=== PATIENT | female | born 2000 | race American Indian/Alaskan Native ===

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

== ENCOUNTER 2019-04-30 04:55 | Inpatient (IN) | payer MEDICAID ==
[2019-04-30] MEDS ORDERED: Sodium Chloride 0.9% 10 ML Syringe FLUSH PRN (16:43)
[2019-04-30] MEDS ORDERED: Ondansetron 4 MG/2 ML SDV IVPUSH PRN (16:46)
[2019-04-30] MEDS ORDERED: Nalbuphine 10 MG/1 ML Vial IVPUSH PRN (16:46)
[2019-04-30] MEDS ORDERED: Oxytocin/Lactated Ringers 10 UNIT/1,000 ML BAG IV SCH (17:00)
[2019-04-30] MEDS: Misoprostol 25 MCG (1/4 of 100 MCG) Tab VAG SCH ×3 (18:57→23:02)
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
[2019-04-30] MEDS ORDERED: Albuterol 6.7 GM Inhaler INH PRN (22:31)
[2019-05-01] MEDS: Misoprostol 25 MCG (1/4 of 100 MCG) Tab VAG SCH (03:01)
[2019-05-01] MEDS: Oxytocin/Lactated Ringers 10 UNIT/1,000 ML BAG IV SCH ×2 (07:32→20:30)
[2019-05-01] MEDS: Lactated Ringers 1,000 ML IV SCH ×4 (07:32→21:50)
--- NOTE | 2019-05-01 09:43 | PCM.PNLD ---
Labor Progress Note - VS & Meds Vital Signs: Last Vital Signs Temp 36.6 C 04/30/19 16:43 Pulse 76 05/01/19 03:02 Resp 17 04/30/19 16:43 BP 117/73 05/01/19 02:30 Pulse Ox 100 04/30/19 16:43 Active Medications: Current Medications Albuterol (Proventil Hfa) 0 gm INH Q4H PRN PRN Reason: Shortness of Breath Lactated Ringer's (Ringers, Lactated) 1,000 mls @ 40 mls/hr IV ASDIRECTED PETER Last Admin: 05/01/19 07:32 Dose: 100 mls/hr Oxytocin/Lactated Ringer's (Pitocin In Lr 10 Units/1,000 Ml) 10 unit in 1,000 mls @ 500 mls/hr IV .CONTINUOUS PETER Oxytocin/Lactated Ringer's (Pitocin In Lr 10 Units/1,000 Ml) 10 unit in 1,000 mls @ 12 mls/hr IV TITRATE PETER; Protocol Last Titration: 05/01/19 08:40 Dose: 6 munits/min, 36 mls/hr Nalbuphine HCl (Nubain) 10 mg IVPUSH Q2H PRN PRN Reason: Pain Ondansetron HCl (Zofran) 4 mg IVPUSH Q4H PRN PRN Reason: Nausea/Vomiting Sodium Chloride (Saline Flush) 10 ml FLUSH ASDIRECTED PRN PRN Reason: Keep Vein Open Discontinued Medications Misoprostol (Cytotec) 25 mcg VAG Q4HR [facility] Stop: 05/01/19 01:01 Last Admin: 04/30/19 21:53 Dose: Not Given Misoprostol (Cytotec) 25 mcg VAG Q4H PETER Stop: 05/01/19 03:01 Last Admin: 05/01/19 03:01 Dose: 25 mcg - Uterine Contractions Uterine Monitoring Mode: External [place] Contraction Frequency (min): 3-5 Contraction Duration (sec): 40-60 Contraction Intensity: Mild Uterine Resting Tone: Soft - Monitoring Monitor Mode: External Ultrasound Heart Rate (FHR) Baseline: 125 Heart Rate (FHR) Variability: Moderate (6-25 bmp) Accelerations: Present, 15x15 Decelerations: None Strip Review: Category I - Vaginal Exam Dilation (cm): 1 Effacement (Percent): 50 Station: -1 Cervical Position: Midposition Sterile Vaginal Exam Performed By: Cha Arenas - Labor Progress (Free Text) Labor Progress: Patient rested on and off through the night. She had 3 doses of cytotec and she had SROM at 0630 for clear fluid. Pitocin induction was started at 0730. Currently at 8 mu/min and she is still not in a good contraction pattern. Contractions are still pretty mild. She continues to leak clear fluid. She is anxious and fearful for what is to come. We discussed epidural and she doesn't think that she could do that. Discussed how it can help her relax and let her body work. Assessment - Term , latent phase of labor. Category I monitor strip. Plan - continue pitocin induction per protocol. Analgesia as indicated and in discussion with the patient. continue with other pain management techniques, consider using the bathtub, breathing, visualization. Expectant management of labor.
--- NOTE | 2019-05-01 16:15 | PCM.PNLD ---
Labor Progress Note - VS & Meds Vital Signs: Last Vital Signs Temp 36.6 C 04/30/19 16:43 Pulse 76 05/01/19 03:02 Resp 17 04/30/19 16:43 BP 117/73 05/01/19 02:30 Pulse Ox 100 04/30/19 16:43 Active Medications: Current Medications Albuterol (Proventil Hfa) 0 gm INH Q4H PRN PRN Reason: Shortness of Breath Lactated Ringer's (Ringers, Lactated) 1,000 mls @ 40 mls/hr IV ASDIRECTED PETER Last Admin: 05/01/19 07:32 Dose: 100 mls/hr Oxytocin/Lactated Ringer's (Pitocin In Lr 10 Units/1,000 Ml) 10 unit in 1,000 mls @ 500 mls/hr IV .CONTINUOUS PETER Oxytocin/Lactated Ringer's (Pitocin In Lr 10 Units/1,000 Ml) 10 unit in 1,000 mls @ 12 mls/hr IV TITRATE PETER; Protocol Last Titration: 05/01/19 15:15 Dose: 16 munits/min, 96 mls/hr Nalbuphine HCl (Nubain) 10 mg IVPUSH Q2H PRN PRN Reason: Pain Ondansetron HCl (Zofran) 4 mg IVPUSH Q4H PRN PRN Reason: Nausea/Vomiting Sodium Chloride (Saline Flush) 10 ml FLUSH ASDIRECTED PRN PRN Reason: Keep Vein Open Discontinued Medications Misoprostol (Cytotec) 25 mcg VAG Q4HR [facility] Stop: 05/01/19 01:01 Last Admin: 04/30/19 21:53 Dose: Not Given Misoprostol (Cytotec) 25 mcg VAG Q4H PETER Stop: 05/01/19 03:01 Last Admin: 05/01/19 03:01 Dose: 25 mcg - Uterine Contractions Uterine Monitoring Mode: External [place] Contraction Frequency (min): 1-3 Contraction Duration (sec): 40-60 Contraction Intensity: Moderate to Strong Uterine Resting Tone: Soft - Monitoring Monitor Mode: External Ultrasound Heart Rate (FHR) Baseline: 135 Heart Rate (FHR) Variability: Moderate (6-25 bmp) Accelerations: Present, 15x15 Decelerations: None Strip Review: Category I - Vaginal Exam Dilation (cm): 3 Effacement (Percent): 80 Station: -1 Cervical Position: Midposition Sterile Vaginal Exam Performed By: Cha Arenas - Labor Progress (Free Text) Labor Progress: Patient has been in the tub to help with contractions. She has not had any analgesics yet. We did discuss options of IV Nubain or epidural, but she does not want anything. Again discussed the importance of trying to stay calm and relaxed and avoid tensing with the contractions. She is doing better with breathing through her contractions. Pitocin is at 16 mu/min. Strip is Category 1. Assessment: Latent phase of labor, have seen progress from this morning. Plan: Expectant management of labor. Anticipate vaginal delivery. Analgesia as patient requests.
[2019-05-01] MEDS ORDERED: fentaNYL/Bupivacaine/NS 2 MCG-0.125% 250 ML EPIDUR PRN (19:36)
[2019-05-01] MEDS ORDERED: ePHEDrine 50 MG/ML SDV IVPUSH PRN (19:36)
[2019-05-01] MEDS ORDERED: Ondansetron 4 MG/2 ML SDV IVPUSH PRN (19:36)
[2019-05-01] MEDS ORDERED: fentaNYL 100 MCG/2 ML SDV EPIDUR PRN (19:36)
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
[2019-05-02] MEDS ORDERED: Bupivacaine 0.25% 10 ML SDV ONE
[2019-05-02] MEDS ORDERED: Lidocaine 1% 50 ML MDV ONE (00:57)
[2019-05-02] MEDS: Lactated Ringers 1,000 ML IV SCH (01:32)
[2019-05-02] MEDS ORDERED: Ampicillin 2 GM in Sodium Chloride 0.9% 100 ML IV ONE ×2 (03:23→09:30)
--- NOTE | 2019-05-02 06:17 | PCM.DEL ---
L & D Note - General Info Date of Service: 05/02/19 Mother's Due Date: 04/30/19 - Delivery Note Labor: Induced by Oxytocin Cervical Ripening Method: Misoprostil Delivery Outcome: Livebirth Delivery Method: Spontaneous Vaginal Delivery-Single Infant Delivery Mode: Spontaneous Presentation: Left Occiput Anterior (BRIANDA) Nuchal Cord: None Prep: Povidone-Iodine (Betadine Anesthesia Type: Epidural Amniotic Fluid Description: Clear Episiotomy Type: None Laceration: Other (Superficial grazing, no sutures needed. ) Placenta: Intact, Spontaneous Cord: 3 Vessels Estimated Blood Loss: 100 Resuscitation Needed: No : Suctioned, Bulb Syringe, Stimulated, Warmed, Reagan Used Provider: Cha Arenas Score 1 min: 8 Score 5 min: 9 Delivery Comments (Free Text/Narrative):: female admitted for elective induction of labor at 40 weeks on 04/30/19 at 1900. Blood type B pos, GBS negative, normal 1 hour glucola. History of marijuana use during , last used 2 months prior to delivery. Cervix was initially fingertip, posterior, firm and long. She received 3 doses of cytotec 25 mcg pv and then pitocin IV was started for induction at 0730 on 05/01. She was very tense and anxious during labor but finally agreed to an epidural at about 2000 on 05/01/19 and she was 5 cm dilated at that time. She had good relief with the epidural. Pitocin was up to 16 mU/min and she did progress. She was completely dilated at 0050 on 05/02/19 and I was called. She started pushing shortly after 0100. Baby tolerated 2nd stage of labor. She did start running a fever during pushing, Tmax of 101.2 and with membranes being ruptured for 21 hours, I did order Ampicillin 2 grams IV and Gentamicin 1.5 mg/kg IV to cover for chorioamnionitis. After about 2.5 hours of pushing in lithotomy position, we had her turn to hands and knees position for about 20 minutes and then side lying and was able to get baby to come down better. We then had her back in lithotomy position and broke the bed and she was able to deliver baby spontaneously from BRIANDA presentation. There was no nuchal cord. There was a large caput on the left occiput and looked like baby had been asynclitic for the majority of the second stage. Mouth and nose were suctioned with bulb suction. Shoulders delivered without difficulty. Time of delivery was 0455 and it was a baby boy. He was dried and stimulated and he cried and had good tone and was placed on mother's abdomen. The cord was clamped and cut after it stopped pulsating. Baby was taken to the [facility] for further evaluation. weight was 7 lb 14 oz (3580 gm). He did pass a small amount of meconium. Placenta delivered spontaneously at 0500 and was intact with 3 vessels in the cord. Fundus firmed down nicely. There were just some small grazes that were not bleeding and nothing that needed sutures. EBL 100 ml. Both Mom and baby were left in the delivery room in stable condition. Induction Criteria - Neely Score Neely Score Dilation: Closed Neely Score Effacement: 0-30% Neely Score Infant's Station: -2 Neely Score Consistency: Medium Neely Score Cervix Position: Posterior Neely Score Total: 2 Neely Score Presenting Part: Reports: Cephalic - Induction Gestational Age >/= 39 wks: Yes Estimated Pelvis: Reports: Adequate Reassuring Monitoring Strip: Yes Absence of Tachy Systole: Yes - Augmentation Estimated Pelvis: Reports: Adequate Weight Estimated:: Reports: AGA Estimated Weight if LGA: 3.175 kg Reassuring Monitoring Strip: Yes Absence of Tachy Systole: Yes - General Info Date of Service: 05/02/19 Admission Dx/Problem (Free Text): Patient Status Order with Admit Dx/Problem 04/30/19 16:43 Patient Status [ADT] Routine Admission Diagnosis/Problem Admission Diagnosis/Problem Functional Status: Reports: Pain Controlled - Review of Systems General: Reports: Fever HEENT: Reports: No Symptoms Pulmonary: Reports: No Symptoms Cardiovascular: Reports: No Symptoms Gastrointestinal: Reports: No Symptoms Genitourinary: Reports: No Symptoms Musculoskeletal: Reports: No Symptoms Skin: Reports: No Symptoms Neurological: Reports: No Symptoms Psychiatric: Reports: No Symptoms - Patient Data Vitals - Most Recent: Last Vital Signs Temp 36.6 C 04/30/19 16:43 Pulse 76 05/01/19 03:02 Resp 17 04/30/19 16:43 BP 117/73 05/01/19 02:30 Pulse Ox 100 04/30/19 16:43 Weight - Most Recent: 93.168 kg I&O - Last 24 Hours: Intake & Output 05/01/19 05/01/19 05/02/19 14:59 22:59 06:59 Intake Total 340 Balance 340 Med Orders - Current: Current Medications Albuterol (Proventil Hfa) 0 gm INH Q4H PRN PRN Reason: Shortness of Breath Ephedrine Sulfate (Ephedrine Sulfate) 5 mg IVPUSH ASDIRECTED PRN PRN Reason: Hypotension Fentanyl (Sublimaze) 100 mcg EPIDUR Q3H PRN PRN Reason: Pain Fentanyl/Bupivacaine HCl (Fentanyl/Bupivacaine/Ns 2 Mcg-0.125% 250 Ml) 0 ml EPIDUR CONTINUOUS PRN PRN Reason: Pain Gentamicin Sulfate (Pharmacy To Dose - Gentamicin) 1 dose .XX ASDIRECTED PETER Lactated Ringer's (Ringers, Lactated) 1,000 mls @ 40 mls/hr IV ASDIRECTED PETER Last Admin: 05/02/19 01:32 Dose: 125 mls/hr Oxytocin/Lactated Ringer's (Pitocin In Lr 10 Units/1,000 Ml) 10 unit in 1,000 mls @ 500 mls/hr IV .CONTINUOUS PETER Oxytocin/Lactated Ringer's (Pitocin In Lr 10 Units/1,000 Ml) 10 unit in 1,000 mls @ 12 mls/hr IV TITRATE PETER; Protocol Last Titration: 05/02/19 02:55 Dose: 14 munits/min, 84 mls/hr Gentamicin Sulfate 120 mg/ (Sodium Chloride) 103 mls @ 206 mls/hr IV Q8H PETER Last Admin: 05/02/19 04:11 Dose: 206 mls/hr Nalbuphine HCl (Nubain) 10 mg IVPUSH Q2H PRN PRN Reason: Pain Ondansetron HCl (Zofran) 4 mg IVPUSH Q4H PRN PRN Reason: Nausea/Vomiting Ondansetron HCl (Zofran) 4 mg IVPUSH ONETIME PRN PRN Reason: Nausea/Vomiting Sodium Chloride (Saline Flush) 10 ml FLUSH ASDIRECTED PRN PRN Reason: Keep Vein Open Discontinued Medications Ampicillin Sodium 2 gm/ Sodium (Chloride) 100 mls @ 200 mls/hr IV ONETIME ONE Stop: 05/02/19 03:52 Last Admin: 05/02/19 03:37 Dose: 200 mls/hr Lidocaine HCl (Xylocaine 1%) Confirm Administered Dose 50 ml .ROUTE .STK-MED ONE Stop: 05/02/19 00:58 Misoprostol (Cytotec) 25 mcg VAG Q4HR [facility] Stop: 05/01/19 01:01 Last Admin: 04/30/19 21:53 Dose: Not Given Misoprostol (Cytotec) 25 mcg VAG Q4H [facility] Stop: 05/01/19 03:01 Last Admin: 05/01/19 03:01 Dose: 25 mcg - Exam General: Alert, Oriented, Cooperative HEENT: Pupils Equal, Mucous Membr. Moist/[place] 5 Neck: Supple Lungs: Normal Respiratory Effort Cardiovascular: Regular Rate, Regular Rhythm GI/Abdominal Exam: Soft, Non-Tender (Female) Exam: Vaginal Bleeding Back Exam: Normal Inspection, Full Range of Motion Extremities: Normal Inspection, No Pedal Edema Skin: Warm, Dry, Intact Neurological: No New Focal Deficit Psy/Mental Status: Alert, Anxious - Problem List & Annotations (1) 40 weeks gestation of SNOMED Code(s): 62469930 Code(s): Z3A.40 - 40 WEEKS GESTATION OF Status: Acute Current Visit: Yes (2) Encounter for elective induction of labor SNOMED Code(s): 881286693 Code(s): Z34.90 - ENCNTR FOR SUPRVSN OF NORMAL , UNSP, UNSP TRIMESTER Status: Acute Current Visit: Yes (3) Drug use during SNOMED Code(s): 63796270 Code(s): FHN0414 - Status: Acute Current Visit: Yes (4) Asthma SNOMED Code(s): 318171622 Code(s): J45.909 - UNSPECIFIED ASTHMA, UNCOMPLICATED Status: Acute Current Visit: Yes (5) Anxiety SNOMED Code(s): 28400163 Code(s): F41.9 - ANXIETY DISORDER, UNSPECIFIED Status: Acute Current Visit: Yes (6) Spontaneous vaginal delivery SNOMED Code(s): 957956277 Code(s): O80 - ENCOUNTER FOR FULL-TERM UNCOMPLICATED DELIVERY Status: Acute Current Visit: Yes (7) Maternal fever during labor, delivered SNOMED Code(s): 899756919, 615277562 Code(s): O75.2 - PYREXIA DURING LABOR, NOT ELSEWHERE CLASSIFIED Status: Acute Current Visit: Yes - Problem List Review Problem List Initiated/Reviewed/Updated: Yes - My Orders Last 24 Hours: My Active Orders 05/01/19 07:10 Communication Order [RC] ASDIRECTED Notify Provider [RC] ASDIRECTED 05/01/19 07:15 Oxytocin/Lactated Ringers [Pitocin in LR 10 Units/1,000 ML] 10 unit in 1,000 ml IV TITRATE 05/02/19 03:30 Pharmacy to Dose - Gentamicin 1 dose .XX ASDIRECTED 05/02/19 04:00 Gentamicin 120 mg Sodium Chloride 0.9% [Normal Saline] 100 ml IV Q8H 05/02/19 05:16 Patient Status Manage Transfer [TRANSFER] Routine - Assessment Assessment:: at 40 weeks gestation. GBS negative, but membranes ruptured for about 22.5 hours before delivery. Maternal fever during last few hours of labor, while pushing. Tmax 101.2. Covered with Amp and Gent IV for suspected chorioamnionitis. 1 dose of each infused prior to delivery. She wanted to try to breastfeed, but asked for a bottle of formula to feed baby. - Plan Plan:: 18 yo female at 40 weeks gestation, admitted for elective induction of labor. She is GBS negative and blood type B positive. She has refused Flu and Tdap vaccinations. History of marijuana use during , but states no use in the past 2 months and UDS negative on 04/05/19 and again 04/29/19. She is anxious about labor and delivery. She has support from significant other, but does not want other family in the room due to increased stress with other family members. Cervix is not favorable today. Plan: Cytotec for cervical ripening and induction. Will use up to 3 doses if needed and pitocin induction/augmentation when appropriate. She wants to try . Will need a lot of education and encouragement. She plans to have baby circumcised. 05/02/19: 1. Maternal fever during pushing. Will continue 1 dose of AMp and Gent and check CBC, UA and urine culture and monitor for continued fever. If temp spikes , will do blood cultures. 2. , no perineal tear - routine care. She will need a lot of education and support. 3. Sounds like she is going to bottle feed, but may try .
[2019-05-02] MEDS ORDERED: Diphtheria,Pertussis(Acell),Tetanus Vaccine 0.5 ML Syringe IM ONE (06:20)
[2019-05-02] MEDS ORDERED: Docusate Sodium 100 MG Cap PO PRN (06:20)
[2019-05-02] MEDS ORDERED: Witch Hazel Medicated Pads 40/Jar TOP PRN (06:20)
[2019-05-02] MEDS ORDERED: Benzocaine/Menthol 20%-0.5% Spray 56 GM Canister TOP PRN (06:20)
[2019-05-02] MEDS ORDERED: Simethicone 80 MG Tab.Chew PO PRN (06:20)
[2019-05-02] MEDS: Ibuprofen 800 MG Tab PO PRN ×3 (06:38→20:04)
[2019-05-02] MEDS: Prenatal Multivitamin with Calcium/Folic Acid/Iron Tab PO SCH (09:19)
--- NOTE | 2019-05-02 14:26 | PCM48HPAN ---
Post Anesthesia Note - EVALUATION WITHIN 48HRS OF ANESTHETIC Vital Signs in Normal Range: Yes Patient Participated in Evaluation: Yes Respiratory Function Stable: Yes Airway Patent: Yes Cardiovascular Function Stable: Yes Hydration Status Stable: Yes Pain Control Satisfactory: Yes Nausea and Vomiting Control Satisfactory: Yes Mental Status Recovered: Yes Vital Signs: Last Vital Signs Temp 36.9 C 05/02/19 08:36 Pulse 63 05/02/19 08:36 Resp 17 04/30/19 16:43 BP 127/80 05/02/19 08:36 Pulse Ox 97 05/01/19 20:30
[2019-05-02] MEDS: Acetaminophen 325 MG Tab PO PRN (17:34)
[2019-05-03] MEDS: Ibuprofen 800 MG Tab PO PRN ×2 (02:51→10:22)
[2019-05-03 04:32] VITALS: PULSE 64
[2019-05-03] MEDS: Acetaminophen 325 MG Tab PO PRN (07:12)
[2019-05-03] MEDS: Prenatal Multivitamin with Calcium/Folic Acid/Iron Tab PO SCH (10:22)
[2019-05-03 11:16] VITALS: BP 131/75
--- NOTE | 2019-05-03 18:50 | PCM.DCSUM1 ---
Discharge Summary - Hospital Course Free Text/Narrative:: female admitted for elective induction of labor at 40 weeks on 04/30/19 at 1900. Blood type B pos, GBS negative, normal 1 hour glucola. History of marijuana use during , last used 2 months prior to delivery. Cervix was initially fingertip, posterior, firm and long. She received 3 doses of cytotec 25 mcg pv and then pitocin IV was started for induction at 0730 on 05/01. She was very tense and anxious during labor but finally agreed to an epidural at about 2000 on 05/01/19 and she was 5 cm dilated at that time. She had good relief with the epidural. Pitocin was up to 16 mU/min and she did progress. She was completely dilated at 0050 on 05/02/19 and I was called. She started pushing shortly after 0100. Baby tolerated 2nd stage of labor. She did start running a fever during pushing, Tmax of 101.2 and with membranes being ruptured for 21 hours, I did order Ampicillin 2 grams IV and Gentamicin 1.5 mg/kg IV to cover for chorioamnionitis. After about 2.5 hours of pushing in lithotomy position, we had her turn to hands and knees position for about 20 minutes and then side lying and was able to get baby to come down better. We then had her back in lithotomy position and broke the bed and she was able to deliver baby spontaneously from BRIANDA presentation. There was no nuchal cord. There was a large caput on the left occiput and looked like baby had been asynclitic for the majority of the second stage. Mouth and nose were suctioned with bulb suction. Shoulders delivered without difficulty. Time of delivery was 0455 and it was a baby boy. He was dried and stimulated and he cried and had good tone and was placed on mother's abdomen. The cord was clamped and cut after it stopped pulsating. Baby was taken to the [facility] warm for further evaluation. weight was 7 lb 14 oz (3580 gm). He did pass a small amount of meconium. Placenta delivered spontaneously at 0500 and was intact with 3 vessels in the cord. Fundus firmed down nicely. There were just some small grazes that were not bleeding and nothing that needed sutures. EBL 100 ml. Both Mom and baby were left in the delivery room in stable condition. She has been afebrile since delivery and bleeding has been minimal. She is formula feeding her baby. She is adamant that they go home today because she won't have a ride to get home tomorrow. She refused to have repeat CBC today. Diagnosis: Stroke: No Modified Bailey Scale: No Symptoms at All Modified Edgefield Scale Score: 0 - Discharge Data Discharge Date: 05/03/19 Discharge Disposition: Home, Self-Care 01 Condition: Good - Referral to Home Health Primary Care Physician: Cha Arenas MD - Discharge Diagnosis/Problem(s) (1) 40 weeks gestation of SNOMED Code(s): 52989768 ICD Code: Z3A.40 - 40 WEEKS GESTATION OF Status: Acute (2) Encounter for elective induction of labor SNOMED Code(s): 239962499 ICD Code: Z34.90 - ENCNTR FOR SUPRVSN OF NORMAL , UNSP, UNSP TRIMESTER Status: Acute (3) Drug use during SNOMED Code(s): 06416904 ICD Code: IOC2168 - Status: Acute (4) Asthma SNOMED Code(s): 857678296 ICD Code: J45.909 - UNSPECIFIED ASTHMA, UNCOMPLICATED Status: Acute (5) Anxiety SNOMED Code(s): 48033791 ICD Code: F41.9 - ANXIETY DISORDER, UNSPECIFIED Status: Acute (6) Spontaneous vaginal delivery SNOMED Code(s): 264706074 ICD Code: O80 - ENCOUNTER FOR FULL-TERM UNCOMPLICATED DELIVERY Status: Acute (7) Maternal fever during labor, delivered SNOMED Code(s): 251922460, 833018246 ICD Code: O75.2 - PYREXIA DURING LABOR, NOT ELSEWHERE CLASSIFIED Status: Acute - Patient Instructions Diet: Regular Diet as Tolerated, Drink 8-10+ Glasses/Day Feeding Instructions: Feed baby on demand, about every 2 to 3 hours or when he is showing you feeding cues that he is hungry. Activity: As Tolerated Driving: May Drive Today Showering/Bathing: May Shower Notify Provider of: Fever, Increased Pain, Swelling and Redness, Nausea and/or Vomiting - Discharge Plan *PRESCRIPTION DRUG MONITORING PROGRAM REVIEWED*: Yes *COPY OF PRESCRIPTION DRUG MONITORING REPORT IN PATIENT BHAKTI: No Home Medications: Home Meds Albuterol Sulfate [Proair Hfa] 2 puff INH ASDIRECTED 11/09/17 [History] Vits #93/Iron Fum/FA [ Formula Tablet] 1 tab PO DAILY 04/30/19 [History] Acetaminophen [Tylenol] 650 mg PO Q4H PRN tablet 05/03/19 [Rx] Benzocaine/Menthol [Dermoplast Pain Relief [place]] 1 applic TOP ASDIRECTED PRN canister 05/03/19 [Rx] Docusate Sodium [Colace] 100 mg PO BID PRN cap 05/03/19 [Rx] Ibuprofen [Motrin] 800 mg PO Q6H PRN tablet 05/03/19 [Rx] Frances Mary [Tucks] 1 pad TOP ASDIRECTED PRN pad 05/03/19 [Rx] Oxygen Therapy Mode: Room Air Patient Handouts: Vaginal Delivery, Vaginal Delivery, Care After, Living With Anxiety - Discharge Summary/Plan Comment DC Time >30 min.: No Discharge Summary/Plan Comment: Plan: 1. continue routine pospartum instructions. 2. Continue to feed baby with formula on demand. 3. Advised no intercourse for 6 weeks and follow up in the clinic for visit in 6 weeks. 4. Social work consult today and she has a forensic social worker close to where she lives. 5. Advised that she should not be smoking marijuana so that she can take good care of her baby and baby should not be exposed to that. - General Info Date of Service: 05/03/19 Functional Status: Reports: Pain Controlled, Tolerating Diet, Ambulating, Urinating - Review of Systems General: Reports: No Symptoms HEENT: Reports: No Symptoms Pulmonary: Reports: No Symptoms Cardiovascular: Reports: No Symptoms Gastrointestinal: Reports: No Symptoms Genitourinary: Reports: No Symptoms Musculoskeletal: Reports: No Symptoms Skin: Reports: No Symptoms Neurological: Reports: No Symptoms Psychiatric: Reports: Anxiety - Patient Data Vitals - Most Recent: Last Vital Signs Temp 35.7 C 05/03/19 10:04 Pulse 64 05/03/19 10:04 Resp 16 05/03/19 10:04 BP 131/75 05/03/19 10:04 Pulse Ox 99 05/03/19 10:04 Weight - Most Recent: 93.168 kg I&O - Last 24 hours: Intake & Output 05/03/19 05/03/19 05/03/19 06:59 14:59 22:59 Intake Total 0 Balance 0 Lab Results - Last 24 hrs: Laboratory Results - last 24 hr 05/03/19 Range/Units 05:55 Urine Color Yellow (Yellow) Urine Appearance Cloudy H (Clear) Urine pH 7.0 (5.0-8.0) Ur Specific [place] 1.025 (1.005-1.030) Urine Protein Negative (Negative) Urine Glucose (UA) Negative (Negative) Urine Ketones Negative (Negative) Urine Occult Blood 3+ H (Negative) Urine Nitrite Negative (Negative) Urine Bilirubin Negative (Negative) Urine Urobilinogen 0.2 (0.2-1.0) Ur Leukocyte Esterase Negative (Negative) Urine RBC 75-100 H (0-5) /hpf Urine WBC Not seen (0-5) /hpf Ur Squamous Epith Cells 5-10 H (0-5) /hpf Urine Bacteria Rare (FEW) /hpf Urine Mucus Not seen (FEW) /hpf Med Orders - Current: Current Medications Discontinued Medications Acetaminophen (Tylenol) 650 mg PO Q4H PRN PRN Reason: mild pain or fever Last Admin: 05/03/19 07:12 Dose: 650 mg Albuterol (Proventil Hfa) 0 gm INH Q4H PRN PRN Reason: Shortness of Breath Benzocaine/Menthol (Dermoplast Pain Relief [place]) 0 gm TOP ASDIRECTED PRN PRN Reason: Perineal Comfort Measure Bupivacaine HCl (Sensorcaine-Mpf 0.25%) 10 ml .ROUTE .STK-MED ONE Stop: 05/02/19 00:01 Diphtheria/Tetanus/Acell Pertussis (Adacel) 0.5 ml IM .ONCE ONE Stop: 05/02/19 06:21 Last Admin: 05/02/19 08:49 Dose: Not Given Docusate Sodium (Colace) 100 mg PO BID PRN PRN Reason: Constipation Ephedrine Sulfate (Ephedrine Sulfate) 5 mg IVPUSH ASDIRECTED PRN PRN Reason: Hypotension Fentanyl (Sublimaze) 100 mcg EPIDUR Q3H PRN PRN Reason: Pain Fentanyl/Bupivacaine HCl (Fentanyl/Bupivacaine/Ns 2 Mcg-0.125% 250 Ml) 0 ml EPIDUR CONTINUOUS PRN PRN Reason: Pain Gentamicin Sulfate (Pharmacy To Dose - Gentamicin) 1 dose .XX ASDIRECTED PETER Lactated Ringer's (Ringers, Lactated) 1,000 mls @ 40 mls/hr IV ASDIRECTED PETER Last Admin: 05/02/19 01:32 Dose: 125 mls/hr Oxytocin/Lactated Ringer's (Pitocin In Lr 10 Units/1,000 Ml) 10 unit in 1,000 mls @ 500 mls/hr IV .CONTINUOUS PETER Last Admin: 05/02/19 04:55 Dose: 500 mls/hr Oxytocin/Lactated Ringer's (Pitocin In Lr 10 Units/1,000 Ml) 10 unit in 1,000 mls @ 12 mls/hr IV TITRATE PETER; Protocol Last Titration: 05/02/19 02:55 Dose: 14 munits/min, 84 mls/hr Ampicillin Sodium 2 gm/ Sodium (Chloride) 100 mls @ 200 mls/hr IV ONETIME ONE Stop: 05/02/19 03:52 Last Admin: 05/02/19 03:37 Dose: 200 mls/hr Gentamicin Sulfate 120 mg/ (Sodium Chloride) 103 mls @ 206 mls/hr IV Q8H PETER Stop: 05/02/19 12:29 Last Admin: 05/02/19 11:43 Dose: 206 mls/hr Ampicillin Sodium 2 gm/ Sodium (Chloride) 100 mls @ 200 mls/hr IV Q6H ONE Stop: 05/02/19 09:59 Last Admin: 05/02/19 09:19 Dose: 200 mls/hr Ibuprofen (Motrin) 800 mg PO Q6H PRN PRN Reason: Mild pain or fever Last Admin: 05/03/19 10:22 Dose: 800 mg Lidocaine HCl (Xylocaine 1%) Confirm Administered Dose 50 ml .ROUTE .STK-MED ONE Stop: 05/02/19 00:58 Last Admin: 05/02/19 07:54 Dose: Not Given Misoprostol (Cytotec) 25 mcg VAG Q4HR PETER Stop: 05/01/19 01:01 Last Admin: 04/30/19 21:53 Dose: Not Given Misoprostol (Cytotec) 25 mcg VAG Q4H PETER Stop: 05/01/19 03:01 Last Admin: 05/01/19 03:01 Dose: 25 mcg Nalbuphine HCl (Nubain) 10 mg IVPUSH Q2H PRN PRN Reason: Pain Ondansetron HCl (Zofran) 4 mg IVPUSH Q4H PRN PRN Reason: Nausea/Vomiting Ondansetron HCl (Zofran) 4 mg IVPUSH ONETIME PRN PRN Reason: Nausea/Vomiting Prenat Multivit/Harper/Iron/Folic Ac ( Plus Iron) 1 each PO DAILY PETER Last Admin: 05/03/19 10:22 Dose: 1 each Simethicone (Simethicone) 80 mg PO Q4H PRN PRN Reason: Gas Sodium Chloride (Saline Flush) 10 ml FLUSH ASDIRECTED PRN PRN Reason: Keep Vein Open W[place]handa Hungel (Tucks) 1 pad TOP ASDIRECTED PRN PRN Reason: Perineal Comfort Measure - Exam General: Reports: Alert, Oriented, No Acute Distress HEENT: Reports: Pupils Equal, Mucous Membr. Moist/[place] Neck: Reports: Supple Lungs: Reports: Normal Respiratory Effort Cardiovascular: Reports: Regular Rate, Regular Rhythm GI/Abdominal Exam: Normal Bowel Sounds, Soft (Female) Exam: Fundal Height (2 fingers below umbilicus), Vaginal Bleeding ( minimal, no clots. ) Rectal (Female) Exam: Deferred Back Exam: Reports: Normal Inspection, Full Range of Motion Extremities: Normal Inspection, Pedal Edema (trace pitting edema. No calf tenderness and no ropey masses. ) Skin: Reports: Warm, Dry, Intact Neurological: Reports: No New Focal Deficit Psy/Mental Status: Reports: Alert, Anxious, Agitated (Adamant that she be discharged today since they don't have a ride to get home tomorrow. )
== END 2019-05-03 13:52 | disposition home or self-care (01) | DRG 805 ==
LOC: JD.OB 04:55 → OBSVTOIN 05-02 04:55 → JD.OB 05-02 04:56
PROVIDERS: ADMIT Family Medicine; ATTEND Family Medicine
PROC: 10E0XZZ Delivery of Products of Conception, External Approach (ICD-10-PCS; principal; 2019-05-02)
PROC: 3E0P7VZ Introduction of Hormone into Female Reproductive, Via Natural or Artificial Opening (ICD-10-PCS; 2019-05-02)
PROC: 3E033VJ Introduction of Other Hormone into Peripheral Vein, Percutaneous Approach (ICD-10-PCS; 2019-05-02)
DX: O48.0 Post-term pregnancy (principal); O41.1230 Chorioamnionitis, third trimester, not applicable or unspecified; Z37.0 Single live birth; O75.2 Pyrexia during labor, not elsewhere classified; O99.52 Diseases of the respiratory system complicating childbirth; J45.909 Unspecified asthma, uncomplicated; Z3A.40 40 weeks gestation of pregnancy; Z87.891 Personal history of nicotine dependence; Z90.89 Acquired absence of other organs
CPT/HCPCS: 36415; 51701; 51702; 59025; 59409; 81001; 85025; 86592; 86850; 86900; 86901; 87086; A9270-GY; J0290; J1580; J2590; J3490; J7050; J7120

== ENCOUNTER 2020-01-01 14:10 | Emergency (ER) | payer MEDICAID ==
[2020-01-01 14:45] VITALS: BP 133/98; PULSE 83
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
[2020-01-01] MEDS ORDERED: Alum Hydrox/Mag Hydrox/Simeth 30 ML, Lidocaine 2% 15 ML PO ONE ×2 (16:39)
== END 2020-01-01 17:24 | disposition home or self-care (01) ==
LOC: JD.ED 14:10
DX: F41.9 Anxiety disorder, unspecified (principal); F43.0 Acute stress reaction; J45.909 Unspecified asthma, uncomplicated; R10.13 Epigastric pain
CPT/HCPCS: 99283; A9270; 99284